=== PATIENT | male | born 1950 | race Two or more races ===

== ENCOUNTER 2016-12-03 00:25 | Inpatient (IN) | payer OTHER ==
--- NOTE | 2016-12-03 00:39 | CPEKG ---
Heart Rate: 108 RR Interval: 556 P-R Interval: 168 QRSD Interval: 88 QT Interval: 344 QTC Interval: 461 P [place]: 65 QRS [place]: 47 T Wave [place]: 68 EKG Severity - ABNORMAL ECG - EKG Impression: SINUS TACHYCARDIA EKG Impression: PROBABLE INFERIOR INFARCT, OLD EKG Impression: CONSIDER POSTERIOR WALL INVOLVEMENT EKG Impression: ST DEPRESSION, CONSIDER ISCHEMIA, ANT LEADS Electronically Signed By: Marietta Evans 05-Dec-2016 04:40:11
[2016-12-03] MEDS ORDERED: NITROGLYCERIN 0.4 MG BTL SL ONE ×4 (00:49→01:05)
[2016-12-03] MEDS: ASPIRIN 81 MG CHEWABLE TAB PO ONE ×2 (01:04→02:40)
[2016-12-03 01:07] LABS: % IMMATURE GRANULYOCYTES 0.3 % (0.0-1.1); ABSOLUTE IMMATURE GRANULOCYTES 0.02 10^3/uL (0.00-0.10); ADD DIFF? NO; ADD MORPH? NO; ADD SCAN? NO; ATYPICAL LYMPHOCYTE FLAG 10 (0-99); FRAGMENT RBC FLAG 0 (0-99); HEMATOCRIT 44.7 % (40.0-51.0); HEMOGLOBIN 15.5 g/dL (13.7-17.5); LEFT SHIFT FLG 0 (0-99); LIPEMIA HEMOLYSIS FLAG 90 (0-99); MEAN CELL HEMOGLOBIN 31.6 pg (27.9-34.1); MEAN CELL HEMOGLOBIN CONCENTR. 34.7 g/dL (32.4-36.7); MEAN PLATELET VOLUME 9.3 fL (8.7-11.7); PLATELET CLUMPS FLAG 0 (0-99); PLATELET COUNT 235 10^3/uL (150-400); RED BLOOD CELL COUNT 4.91 10^6/uL (4.40-6.38); RED CELL DISTRIBUTION WIDTH 11.9 % (11.5-15.2)
[2016-12-03 01:16] LABS: ANION GAP 11 mEq/L (8-16); CALCIUM 9.2 mg/dL (8.5-10.4); CARBON DIOXIDE 22 mEq/l (22-31); CHLORIDE 98 mEq/L (97-110); CREATININE 0.6 mg/dL (0.7-1.3); GLOMERULAR FILTRATION RATE > 60; GLUCOSE 336 mg/dL (70-100); POTASSIUM 4.1 mEq/L (3.5-5.2); SODIUM 131 mEq/L (134-144)
[2016-12-03] MEDS ORDERED: IOPAMIDOL (ISOVUE 370) 100 ML BTL IV ONE (01:30)
--- NOTE | 2016-12-03 01:31 | EDPHY ---
H & P Stated Complaint: chest and L arm pain Time Seen by Provider: 12/03/16 00:43 HPI/ROS: HPI The patient presents with chest pain which began at about 10:00 p.m. tonight when he was walking in the house. The pain is in his left anterior chest and radiates down his left arm. It is sharp in nature and has been waxing and waning in regards severity but has never completely resolved. He has no associated shortness of breath, nausea, vomiting, diaphoresis or dizziness. He has no prior history of similar. He can walk for about 15-20 minutes and then sometimes experiences dyspnea. He has not seen a doctor in several years. He does not smoke tobacco. He denies any family history of cardiac disease.. REVIEW OF SYSTEMS Constitutional: No fever, no chills. Eyes: No discharge. ENT: No sore throat. Cardiovascular: Chest pain is present Respiratory: No cough, no shortness of breath. Gastrointestinal: No abdominal pain, no vomiting. Genitourinary: No hematuria. Musculoskeletal: No back pain. Skin: No rashes. Neurological: No headache. PMHx: No diabetes or hypertension, though has not been seen by a doctor in several years Soc Hx: Lives with his family, nonsmoker PHYSICAL General Appearance: Alert, no distress Eyes: Pupils equal and round no pallor or injection ENT, Mouth: Mucous membranes moist Respiratory: There are no retractions, lungs are clear to auscultation Cardiovascular: Regular rate and rhythm Gastrointestinal: Abdomen is soft and non-tender, no masses, bowel sounds normal Neurological: A&O, moves all extremities Skin: Warm and dry, no rashes Musculoskeletal: Neck is supple non tender Extremities: symmetrical, full range of motion Psychiatric: Patient is oriented X 3, there is no agitation Source: Patient Exam Limitations: No limitations - Personal History Current Tetanus/Diphtheria Vaccine: No - Medical/Surgical History Hx Asthma: No Hx Chronic Respiratory Disease: No Hx Diabetes: No Hx Cardiac Disease: No Hx Renal Disease: No Hx Cirrhosis: No Hx Alcoholism: No Hx HIV/AIDS: No Hx Splenectomy or Spleen Trauma: No Other PMH: PMHx: denies. PSHx: denies - Social History Smoking Status: Never smoked Drug Use: None Constitutional: Initial Vital Signs Temperature (C) 37 C 12/03/16 00:27 Heart Rate 110 H 12/03/16 00:27 Respiratory Rate 16 12/03/16 00:27 Blood Pressure 213/111 H 12/03/16 00:27 O2 Sat (%) 98 12/03/16 00:27 O2 Delivery Mode Nasal Cannula O2 (L/minute) 2 Allergies/Adverse Reactions: No Known Allergies Allergy (Unverified 12/03/16 00:27) Home Medications: Medication Instructions Recorded NK [No Known Home Meds] 12/03/16 Medical Decision Making - Diagnostics EKG Interpretation: EKG: Complete interpretation has been separately recorded in the [facility] archive. Summary impression: ST segment depressions in V1 through V3 with slight ST segment elevation in 2, 3, AVF rate of 108. Imaging: Chest x-ray two views interpreted by me shows cardiomegaly, interpreted by me, radiology interpretation is pending. CT scan of chest and abdomen with IV contrast demonstrates no dissection, discussed with Dr. Ballard of Radiology. ED Course/Re-evaluation: Upon arrival, the patient was immediately brought to a room. He had taken aspirin prior to arrival, so no further aspirin was given. EKG was obtained, which demonstrated ST segment depressions in V1 through V3, however there was some question if this was rate related ischemia. The patient was given sublingual nitroglycerin which improved his blood pressure to the 140s over 90s. He continued to have mild pain and thus was given morphine. The patient required additional dose of morphine with slight improvement in his pain. Initial troponin returned at 1.14. CT scan of chest was performed which did not show any aortic dissection. The case was discussed with the casting machine operator helper interventionist, Dr. Remy. He came to the emergency room to see the patient and took him emergently to the catheterization lab. Differential Diagnosis: This is a 66-year-old male with no significant past medical history, however no recent medical care, who presents brought in by family for chest pain which began at approximately 10:00 p.m. last night which occurred while walking. He continues to have pain now. Differential diagnosis includes ACS, aortic dissection, pulmonary embolism, pneumothorax, pneumonia. Critical Care Time: CRITICAL CARE Critical care time spent by me, Dr Evans, exclusively with this patient was 60 minutes, exclusive of PA time and exclusive of procedures. The organ system at risk was cardiac and I gave IV fluids, morphine IV, nitroglycerin sublingually, consulted with Cardiology and transfer the patient emergently to the cardiac catheterization lab to prevent worsening of the patients condition. - Data Points Laboratory Results: Laboratory Results 12/03/16 00:45 12/03/16 00:45 12/03/16 12/03/16 12/03/16 00:45 00:45 00:45 WBC 7.86 10^3/uL 10^3/uL (3.80-9.50) RBC 4.91 10^6/uL 10^6/uL (4.40-6.38) Hgb 15.5 g/dL g/dL (13.7-17.5) Hct 44.7 % % (40.0-51.0) MCV 91.0 fL fL (81.5-99.8) MCH 31.6 pg pg (27.9-34.1) MCHC 34.7 g/dL g/dL (32.4-36.7) RDW 11.9 % % (11.5-15.2) Plt Count 235 10^3/uL 10^3/uL (150-400) MPV 9.3 fL fL (8.7-11.7) Neut % (Auto) 75.0 % H % (39.3-74.2) Lymph % (Auto) 17.9 % % (15.0-45.0) [place] % (Auto) 5.2 % % (4.5-13.0) Eos % (Auto) 1.0 % % (0.6-7.6) Baso % (Auto) 0.6 % % (0.3-1.7) Nucleat RBC Rel Count 0.0 % % (0.0-0.2) Absolute Neuts (auto) 5.89 10^3/uL 10^3/uL (1.70-6.50) Absolute Lymphs (auto) 1.41 10^3/uL 10^3/uL (1.00-3.00) Absolute Monos (auto) 0.41 10^3/uL 10^3/uL (0.30-0.80) Absolute Eos (auto) 0.08 10^3/uL 10^3/uL (0.03-0.40) Absolute Basos (auto) 0.05 10^3/uL 10^3/uL (0.02-0.10) Absolute Nucleated RBC 0.00 10^3/uL 10^3/uL (0-0.01) Immature Gran % 0.3 % % (0.0-1.1) Immature Gran # 0.02 10^3/uL 10^3/uL (0.00-0.10) PT 13.1 SEC SEC (12.0-15.0) INR 1.00 (0.83-1.16) APTT 26.0 SEC SEC (23.0-38.0) Sodium 131 mEq/L L mEq/L (134-144) Potassium 4.1 mEq/L mEq/L (3.5-5.2) Chloride 98 mEq/L mEq/L (97-110) Carbon Dioxide 22 mEq/l mEq/l (22-31) Anion Gap 11 mEq/L mEq/L (8-16) BUN 8 mg/dL mg/dL (7-23) Creatinine 0.6 mg/dL L mg/dL (0.7-1.3) Estimated GFR > 60 Glucose 336 mg/dL H mg/dL (70-100) Calcium 9.2 mg/dL mg/dL (8.5-10.4) Troponin I 1.430 ng/mL H ng/mL (0-0.034) NT-Pro-B Natriuret Pep 66 pg/mL pg/mL (0-125) Medications Given: Discontinued Medications Aspirin (Aspirin) 324 mg PO EDNOW ONE Stop: 12/03/16 01:03 Last Admin: 12/03/16 02:40 Dose: 324 mg Sodium Chloride (Ns) 1,000 mls @ 0 mls/hr IV ONCE ONE PRN Reason: Wide Open Stop: 12/03/16 01:38 Last Admin: 12/03/16 01:00 Dose: 1,000 mls Morphine Sulfate (Morphine) 4 mg IVP EDNOW ONE Stop: 12/03/16 01:11 Last Admin: 12/03/16 01:24 Dose: 4 mg Morphine Sulfate (Morphine) 4 mg IVP EDNOW ONE Stop: 12/03/16 01:36 Last Admin: 12/03/16 01:35 Dose: 4 mg Nitroglycerin (Nitrostat) 0.4 mg SL EDNOW ONE Stop: 12/03/16 00:53 Last Admin: 12/03/16 00:50 Dose: 0.4 mg Nitroglycerin (Nitrostat) 0.4 mg SL EDNOW ONE Stop: 12/03/16 01:00 Last Admin: 12/03/16 00:55 Dose: 0.4 mg Nitroglycerin (Nitrostat) 0.4 mg SL EDNOW ONE Stop: 12/03/16 01:06 Last Admin: 12/03/16 01:05 Dose: 0.4 mg Departure - Departure Disposition: [facility] Inpatient Acute Clinical Impression: Acute coronary syndrome Chest pain Qualifiers: Chest pain type: chest pain due to myocardial ischemia Ischemic chest pain type : unspecified angina pectoris type Qualified Code(s): I20.9 - Angina pectoris, unspecified HTN (hypertension) Qualifiers: Hypertension type: essential hypertension Qualified Code(s): I10 - Essential ( primary) hypertension Condition: Fair
[2016-12-03] MEDS ORDERED: NS 1,000 ML IV ONE (01:37)
--- NOTE | 2016-12-03 01:52 | CPEKG ---
Heart Rate: 94 RR Interval: 638 P-R Interval: 176 QRSD Interval: 86 QT Interval: 380 QTC Interval: 476 P [place]: 50 QRS [place]: 0 T Wave [place]: 52 EKG Severity - ABNORMAL ECG - EKG Impression: SINUS RHYTHM EKG Impression: INFERIOR INFARCT, AGE INDETERMINATE EKG Impression: PROBABLE POSTERIOR INFARCT EKG Impression: BORDERLINE PROLONGED QT INTERVAL Electronically Signed By: Marietta Evans 03-Dec-2016 07:07:17
[2016-12-03] MEDS ORDERED: fentaNYL 100 MCG/2 ML INJ ONE ×2 (02:16→03:19)
[2016-12-03] MEDS ORDERED: MIDAZOLAM 2 MG/2 ML VIAL ONE ×3 (02:16→03:19)
[2016-12-03] MEDS ORDERED: LIDOCAINE 1% 30 ML SDV ONE (02:16)
[2016-12-03] MEDS ORDERED: NITROGLYCERIN 1,500 MCG/15 ML VIAL MISC ONE ×2 (02:17→02:58)
[2016-12-03] MEDS ORDERED: BIVALIRUDIN 250 MG/5 ML VIAL IV ONE (02:17)
[2016-12-03] MEDS ORDERED: VERAPAMIL 5 MG/2 ML VIAL ONE ×2 (02:17→02:56)
[2016-12-03] MEDS ORDERED: HEPARIN 10,000 UNIT/10 ML MDV ONE (02:17)
[2016-12-03] MEDS ORDERED: IOPAMIDOL (ISOVUE-370) 150 ML BTL IV ONE ×3 (02:17→04:00)
[2016-12-03] MEDS ORDERED: PRASUGREL HCL 10 MG TAB ONE (03:06)
[2016-12-03] MEDS ORDERED: PROTOCOL MAGNESIUM 1 DOSE IV PRN (04:37)
[2016-12-03] MEDS ORDERED: LORazepam 2 MG/ML INJ IVP PRN (04:37)
[2016-12-03] MEDS ORDERED: PROTOCOL POTASSIUM 1 DOSE MISC PRN ×2 (04:37)
[2016-12-03] MEDS ORDERED: PRASUGREL HCL 10 MG TAB PO ONE (04:37)
[2016-12-03] MEDS ORDERED: TEMAZEPAM 15 MG CAP PO PRN (04:37)
[2016-12-03] MEDS ORDERED: NITROGLYCERIN 0.4 MG BTL SL PRN (04:37)
[2016-12-03] MEDS ORDERED: OXYCODONE/APAP 5/325 TAB PO PRN (04:37)
[2016-12-03] MEDS ORDERED: ONDANSETRON 4 MG/2 ML VIAL IVP PRN (04:37)
[2016-12-03] MEDS ORDERED: ATROPINE SULFATE 1 MG/10 ML SYR IVP PRN (04:37)
[2016-12-03] MEDS ORDERED: HYDROCODONE/APAP 5/325 TAB PO PRN (04:37)
--- NOTE | 2016-12-03 04:52 | PDDXCAT ---
Diagnostic Cath Note - . Date: 12/03/16 Mold Machine Operator: Jonel Indication: other (STEMI. Delay in door to balloon time due to unusual presentation with waxing and waning symptoms. Cardiology and catheterization laboratory were not contacted [place] patient had been in the emergency department for approximately 90 minutes.) - Procedure Access: right wrist Procedure: left heart catheterization, coronary angiography, left ventriculogram , other (PCI of circumflex and LAD with intravascular ultrasound imaging) - Materials Left Heart Cath size: 6F Left Heart Cath materials: JL3.5, JR4.0, Eliazar's R, other (AL1 for right coronary) - Findings-Left Heart Catheterization LM: Short with distal calcified 50% stenosis affecting LAD LAD: Ostial and very proximal 90-95% stenosis with mid calcified 80% stenosis and at least 90% or greater ostial stenosis of large bifurcating diagonal branch. The mid LAD stenosis in diagonal stenosis are a true bifurcation lesion. LCX: 100% acute total occlusion affecting a large bifurcating marginal/ posterolateral accounting for acute [place]. 70% av groove disease over a long segment confirmed by ultrasound imaging. Total occlusion of distal AV groove vessel both pre and post intervention. This is a small vessel. Subtotal occlusion of small more proximal marginal. RCA: 95% proximal disease with total distal occlusion. Complex collateralization both left to right and right to right mainly filling a large PDA EDP: 26 mm of mercury LVEF: Approximately 45% Wall motion: Posterior and inferior hypokinesis. Evidence for at least moderate or greater mitral regurgitation. Unclear if this is due to ischemic valvular disease or catheter-induced. Complications: None apparent Estimated blood loss: <50ml Closure method: TR Band Assessment: 1. Acute myocardial infarction due to total thrombotic occlusion of a fairly large distal circumflex. 2. Critical ostial and proximal LAD disease likely involving distal left main (left main very short vessel). 3. 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 4. Complex severe mid LAD disease affecting LAD and diagonal branch. 5. Mitral regurgitation at least moderate. Quite possibly due to ischemic mitral regurgitation. 6. Reduced left ventricular ejection fraction with multiple segmental wall motion abnormalities. 7. Successful acute myocardial infarction percutaneous intervention with stenting and high-pressure post dilation of the distal circumflex with excellent final result. 8. Successful stenting of distal left main into ostial and proximal LAD due to critical disease and hemodynamic instability Plan: 1. Dual anti-platelet therapy with aspirin and Effient 2. Follow mitral valve with echocardiography 3. Beta-evy as tolerated 4. We will add BUNNY inhibitor as tolerated once patient has cleared contrast 5. High dose statin therapy 6. Patient will likely need to return for LAD and diagonal complex bifurcation intervention within the next few weeks 7. Assessment of hyperglycemia. Possible treatment of undue diagnosed diabetes. Number a hospitalist consultation Intervention: Initial intervention was performed on the culprit acute lesion in the circumflex. A radial left backup 4.0 6 [place] guide catheter was utilized. Heparin had been administered and further heparin was given throughout the case based on ACT. Patient received aspirin and Effient. Prowater J guidewire was placed distally which led to reperfusion. 2.0 x 12 mm balloon was utilized for pre dilation. Intravascular ultrasound imaging was then performed showing severe diffuse disease throughout the AV groove circumflex. A 2.5 x 38 mm synergy stent was then carefully positioned and deployed to 18 atmospheres. Intracoronary nitroglycerin and verapamil were administered. Ultrasound imaging was performed and a 3.25 x 15 mm non compliant emerge balloon was utilized for multiple post dilations up to 20 atmospheres. This led to an excellent result although there remained no flow in the distal AV groove circumflex which is a small vessel which exited the stent and was in stent assisted. A 2nd Prowater J-wire was placed but could not negotiate across the stent struts into this small occluded vessel. The 2nd Prowater J-wire was then steered into the LAD and intravascular ultrasound imaging was performed from the mid vessel into the left main. This demonstrated the calcified severe mid LAD stenosis and a critical proximal/ ostial stenosis. Ultrasound catheter led to obstruction of flow in the ostial vessel associated with further hemodynamic instability. This improved with removal of the catheter. Measurements were made and a 4.0 mm x 12 mm synergy stent was chosen and carefully positioned in the ostial vessel. Wire remained in the circumflex. It became apparent that the stent would need to hang back slightly into the left main in order to adequately cover the LAD stenosis. This stent was then deployed to 16 atmospheres leading to significant hypotension and hemodynamic instability. A 2nd inflation was performed again this time to 18 atmospheres. Balloon was removed and ultrasound imaging showed an excellent result with mild encroachment on the ostial circumflex. An attempt to perform ultrasound into the circumflex was unsuccessful and aggressive attempts were not made for fear of distorting the LAD stent. After nitroglycerin and verapamil were administered final orthogonal angiography was performed. Jamie right catheter followed by a AL1 catheter were utilized for further negative right coronary angiography in order to better understand the anatomy and collateral filling. Patient Problems: Problems Problem Status Onset Acute coronary syndrome Acute Chest pain Acute HTN (hypertension) Acute
[2016-12-03 04:59] LABS: PROTIME(PATIENT) 13.1 SEC (12.0-15.0)
[2016-12-03] MEDS ORDERED: 1/2 NS 1,000 ML IV SCH (05:00)
--- NOTE | 2016-12-03 05:05 | CPEKG ---
Heart Rate: 86 RR Interval: 698 P-R Interval: 224 QRSD Interval: 76 QT Interval: 388 QTC Interval: 464 P [place]: 47 QRS [place]: -58 T Wave [place]: 44 EKG Severity - ABNORMAL ECG - EKG Impression: SINUS RHYTHM EKG Impression: FIRST DEGREE AV BLOCK EKG Impression: PROBABLE INFERIOR INFARCT, AGE INDETERMINATE EKG Impression: PROBABLE POSTERIOR INFARCT Electronically Signed By: Marietta Evans 03-Dec-2016 07:07:09
[2016-12-03 06:10] LABS: % IMMATURE GRANULYOCYTES 0.1 % (0.0-1.1); ABSOLUTE IMMATURE GRANULOCYTES 0.01 10^3/uL (0.00-0.10); ADD DIFF? NO; ADD MORPH? NO; ADD SCAN? NO; ATYPICAL LYMPHOCYTE FLAG 0 (0-99); FRAGMENT RBC FLAG 0 (0-99); HEMATOCRIT 40.5 % (40.0-51.0); LEFT SHIFT FLG 0 (0-99); LIPEMIA HEMOLYSIS FLAG 90 (0-99); MEAN CELL HEMOGLOBIN 31.3 pg (27.9-34.1); MEAN CELL HEMOGLOBIN CONCENTR. 34.6 g/dL (32.4-36.7); MEAN CELL VOLUME 90.6 fL (81.5-99.8); MEAN PLATELET VOLUME 9.3 fL (8.7-11.7); PLATELET CLUMPS FLAG 10 (0-99); PLATELET COUNT 215 10^3/uL (150-400); RED BLOOD CELL COUNT 4.47 10^6/uL (4.40-6.38)
[2016-12-03 06:24] LABS: CHOLESTEROL 146 mg/dL (140-220); CHOLESTEROL/HDL RATIO 3.32 RATIO (1.00-4.97); HIGH DENSITY LIPOPROTEIN 44 mg/dL (40-65); LDL/HDL RATIO 2.09 RATIO (1.00-3.64); LOW DENSITY LIPOPROTEIN 92 mg/dL (80-100); NON-HIGH DENSITY LIPOPROTEIN 102 mg/dL (90-129); TRIGLYCERIDE 50 mg/dL (40-150); VERY LOW DENSITY LIPOPROTEINS 10 mg/dL (8-25)
[2016-12-03 06:38] LABS: ALBUMIN 3.3 g/dL (3.5-5.0); ANION GAP 8 mEq/L (8-16); ASPARTATE AMINOTRANSFERASE 342 IU/L (17-59); BILIRUBIN,TOTAL 0.9 mg/dL (0.1-1.4); CALCIUM 7.9 mg/dL (8.5-10.4); CARBON DIOXIDE 22 mEq/l (22-31); CHLORIDE 103 mEq/L (97-110); CREATININE 0.7 mg/dL (0.7-1.3); GLOMERULAR FILTRATION RATE > 60; GLUCOSE 228 mg/dL (70-100); LACTATE DEHYDROGENASE 1497 IU/L (313-618); POTASSIUM 5.1 mEq/L (3.5-5.2); SODIUM 133 mEq/L (134-144)
[2016-12-03 06:46] LABS: CK-MB INTERPRETATION POSITIVE (NEGATIVE)
--- NOTE | 2016-12-03 08:47 | CPEKG ---
Heart Rate: 79 RR Interval: 759 P-R Interval: 200 QRSD Interval: 82 QT Interval: 408 QTC Interval: 468 P [place]: 62 QRS [place]: -30 T Wave [place]: -25 EKG Severity - ABNORMAL ECG - EKG Impression: SINUS RHYTHM EKG Impression: INFERIOR INFARCT, AGE INDETERMINATE EKG Impression: CONSIDER POSTERIOR WALL INVOLVEMENT Electronically Signed By: Marietta Evans 05-Dec-2016 04:35:49
[2016-12-03] MEDS: ATORVASTATIN CALCIUM 40 MG TAB PO SCH (09:11)
[2016-12-03] MEDS: ASPIRIN EC 325 MG TAB PO SCH (09:11)
[2016-12-03] MEDS: CARVEDILOL 3.125 MG TAB PO SCH ×2 (09:11→17:49)
[2016-12-03 09:38] LABS: HEMOGLOBIN A1C 10.1 % (4.0-6.0)
[2016-12-03 16:48] LABS: POTASSIUM 3.7 mEq/L (3.5-5.2)
[2016-12-03] MEDS ORDERED: POTASSIUM CL 10 MEQ TAB PO ONE ×2 (16:52→17:38)
[2016-12-03 17:32] LABS: POTASSIUM 3.8 mEq/L (3.5-5.2)
[2016-12-03 18:14] LABS: CK-MB INTERPRETATION POSITIVE (NEGATIVE)
[2016-12-03] MEDS ORDERED: D50W 25 GM/50 ML SYR IVP PRN (20:14)
--- NOTE | 2016-12-03 20:49 | PDGENHP ---
History and Physical - Chief Complaint acute chest pain - History of Present Illness PCP: None Primary service: Dr. Remy, cardiology Reason for consultation: Medical comanagement, diabetes mellitus HPI: 66-year-old male presents with acute chest pain characterized as sharp, severe, located his right chest with associated pain is located in his bilateral shoulders, onset of symptoms 10:00 p.m. on 12/02/2016, duration several hours and not alleviated with sublingual nitroglycerin or morphine. The patient was identified as having an ST-elevation myocardial infarction and he was taken to the public works laborer where stenting occurred. Patient's chest pain was alleviated with this procedure. Prior to his onset of symptoms, the patient reports that he has not had any recent reduction in exercise tolerance although he reports that he is very minimally physically active. He otherwise denies any fatigue or low energy and his only present symptom is poor appetite post catheterization. History Information - Allergies/Home Medication List Allergies/Adverse Reactions: No Known Allergies Allergy (Unverified 12/03/16 00:27) Home Medications: NK [No Known Home Meds] 12/03/16 [Last Taken Unknown] I have personally reviewed and updated: family history, medical history, social history, surgical history - Past Medical History diabetes type 2 ( Not placed on medications in the past), hypertension ( not placed on medications in the past) - Surgical History Additional surgical history: cardiac catheterization today with stents placed - Family History Additional family history: no family history of coronary artery disease or hypothyroidism - Social History Smoking Status: Never smoked Alcohol Use: None Drug Use: None Additional social history: minimally physically active, originally from [place], has lived with his in the [place] area since the Review of Systems ROS: 10pt was reviewed & negative except for what was stated in HPI & below Cardiac: Reports: chest pain Physical Exam Temp Pulse Resp BP Pulse Ox 36.8 C 73 20 134/75 H 96 12/03/16 19:00 12/03/16 19:00 12/03/16 19:00 12/03/16 19:00 12/03/16 19:00 O2 (L/minute) 2 Constitutional: no apparent distress, appears nourished, not in pain Eyes: PERRL, anicteric sclera, EOMI Ears, Nose, Mouth, Throat: moist mucous membranes, hearing normal, ears appear normal, no oral mucosal ulcers Cardiovascular: regular rate and rhythym, no murmur, rub, or gallop, No edema Respiratory: no respiratory distress, no rales or rhonchi, clear to auscultation Gastrointestinal: normoactive bowel sounds, soft, non-tender abdomen, no palpable masses Genitourinary: no bladder fullness, no bladder tenderness Skin: other ( erythema or ecchymoses around the cardiac catheterization site on his right wrist) Neurologic: AAOx3, sensation intact bilaterally, No weakness Psychiatric: interacting appropriately, not anxious, not encephalopathic, thought process linear Lab Data & Imaging Review 12/03/16 05:45 12/03/16 17:15 WBC 7.17 10^3/uL (3.80-9.50) 12/03/16 05:45 RBC 4.47 10^6/uL (4.40-6.38) 12/03/16 05:45 Hgb 14.0 g/dL (13.7-17.5) 12/03/16 05:45 Hct 40.5 % (40.0-51.0) 12/03/16 05:45 MCV 90.6 fL (81.5-99.8) 12/03/16 05:45 MCH 31.3 pg (27.9-34.1) 12/03/16 05:45 MCHC 34.6 g/dL (32.4-36.7) 12/03/16 05:45 RDW 12.0 % (11.5-15.2) 12/03/16 05:45 Plt Count 215 10^3/uL (150-400) 12/03/16 05:45 MPV 9.3 fL (8.7-11.7) 12/03/16 05:45 Neut % (Auto) 67.1 % (39.3-74.2) 12/03/16 05:45 Lymph % (Auto) 26.1 % (15.0-45.0) 12/03/16 05:45 [place] % (Auto) 4.7 % (4.5-13.0) 12/03/16 05:45 Eos % (Auto) 1.4 % (0.6-7.6) 12/03/16 05:45 Baso % (Auto) 0.6 % (0.3-1.7) 12/03/16 05:45 Nucleat RBC Rel Count 0.0 % (0.0-0.2) 12/03/16 05:45 Absolute Neuts (auto) 4.81 10^3/uL (1.70-6.50) 12/03/16 05:45 Absolute Lymphs (auto) 1.87 10^3/uL (1.00-3.00) 12/03/16 05:45 Absolute Monos (auto) 0.34 10^3/uL (0.30-0.80) 12/03/16 05:45 Absolute Eos (auto) 0.10 10^3/uL (0.03-0.40) 12/03/16 05:45 Absolute Basos (auto) 0.04 10^3/uL (0.02-0.10) 12/03/16 05:45 Absolute Nucleated RBC 0.00 10^3/uL (0-0.01) 12/03/16 05:45 Immature Gran % 0.1 % (0.0-1.1) 12/03/16 05:45 Immature Gran # 0.01 10^3/uL (0.00-0.10) 12/03/16 05:45 PT 13.1 SEC (12.0-15.0) 12/03/16 00:45 INR 1.00 (0.83-1.16) 12/03/16 00:45 APTT 26.0 SEC (23.0-38.0) 12/03/16 00:45 Sodium 136 mEq/L (134-144) 12/03/16 17:15 Potassium 3.8 mEq/L (3.5-5.2) 12/03/16 17:15 Chloride 103 mEq/L (97-110) 12/03/16 05:25 Carbon Dioxide 22 mEq/l (22-31) 12/03/16 05:25 Anion Gap 8 mEq/L (8-16) 12/03/16 05:25 BUN 7 mg/dL (7-23) 12/03/16 05:25 Creatinine 0.7 mg/dL (0.7-1.3) 12/03/16 05:25 Estimated GFR > 60 12/03/16 05:25 Glucose 228 mg/dL (70-100) H 12/03/16 05:25 Hemoglobin A1c 10.1 % (4.0-6.0) H 12/03/16 05:45 Estim Average Glucose 243 mg/dL (68-126) H 12/03/16 05:45 Calcium 7.9 mg/dL (8.5-10.4) L 12/03/16 05:25 Phosphorus 2.8 mg/dL (2.5-4.5) 12/03/16 05:25 Magnesium 2.0 mg/dL (1.6-2.3) 12/03/16 05:25 Total Bilirubin 0.9 mg/dL (0.1-1.4) 12/03/16 05:25 AST 342 IU/L (17-59) H 12/03/16 05:25 Lactate Dehydrogenase 1497 IU/L (313-618) H 12/03/16 05:25 Creatine Kinase 2972 IU/L (0-224) H 12/03/16 13:00 CK-MB (CK-2) Fraction 242.00 ng/mL (0-3.19) H 12/03/16 13:00 CK-MB (CK-2) % 8.1 % (0.0-4.0) H 12/03/16 13:00 Creatine Kinase Interp POSITIVE (NEGATIVE) H 12/03/16 13:00 Troponin I 109.000 ng/mL (0-0.034) H 12/03/16 05:25 NT-Pro-B Natriuret Pep 145 pg/mL (0-125) H 12/03/16 05:45 Albumin 3.3 g/dL (3.5-5.0) L 12/03/16 05:25 Triglycerides 50 mg/dL (40-150) 12/03/16 05:45 Cholesterol 146 mg/dL (140-220) 12/03/16 05:45 Cholesterol Risk Factr 0.5 (0.2-1.0) 12/03/16 05:45 LDL Cholesterol, Calc 92 mg/dL (80-100) 12/03/16 05:45 LDL Risk Factor 0.8 (0.2-1.0) 12/03/16 05:45 VLDL Cholesterol 10 mg/dL (8-25) 12/03/16 05:45 Non-HDL Cholesterol 102 mg/dL (90-129) 12/03/16 05:45 HDL Cholesterol 44 mg/dL (40-65) 12/03/16 05:45 LDL/HDL Ratio 2.09 RATIO (1.00-3.64) 12/03/16 05:45 Cholesterol/HDL Ratio 3.32 RATIO (1.00-4.97) 12/03/16 05:45 TSH 9.430 uIU/mL (0.465-4.680) H 12/03/16 05:45 Specimen Hemolysis 155 12/03/16 17:15 Visualized and Interpreted EKG results: Yes EKG Interpretation: Positive for: other ( initial ST-elevation in the inferior leads with reciprocal changes in V2 through V4, subsequent EKG demonstrates Q- wave in lead 3 and aVF with T-wave inversions in leads V5 through V6 as well as the inferior leads) Assessment & Plan Assessment: 66-year-old male presents with an ST-elevation myocardial infarction Plan: 1. ST-elevation myocardial infarction. Discussed with Dr. Ishaan Remy, he expresses that the patient has multivessel disease with what appears to be chronic occlusion in the RCA, culprit lesion in the circumflex, possibly LAD and left main with stents placed, ejection fraction 45%. -CT angiogram demonstrating no evidence of pulmonary embolism -anti-platelet agents are aspirin and Effient -goal LDL is less than 70, currently 92, on statin -initiated on beta-evy for reduced ejection fraction -recommend initiation of low-dose BUNNY-inhibitor if systolic blood pressure tolerates -monitor on telemetry for any ventricular arrhythmias given his large event with peak troponin of 109 2. Diabetes mellitus type 2 with hyperglycemia. Patient has been diagnosed with diabetes mellitus in the past but has not been on any agents, his worsening hyperglycemia may be a stress response in the setting of ST-elevation myocardial infarction but his hemoglobin A1c is 10.1% he warrants initiation of anti glycemic agents at this time. -initiate metformin 500 mg twice daily given his present GI symptoms, rapidly up titrate to 1000 mg twice daily if he tolerates this initial dose -initiate on insulin sliding scale so we can get a better understanding of his blood sugar levels and also insulin requirements in case he does require concomitant use of Lantus moving forward 3. Hypertension. Chronic, with acute exacerbation in the setting of myocardial infarction, has been initiated on beta-evy therapy and would recommend introduction of low-dose BUNNY-inhibitor if systolic blood pressure tolerates tomorrow 4. Hyponatremia. Acute, most likely secondary to renal hypoperfusion in the setting of acute [place], improving with IV fluids -adjusted IV fluids from half-normal saline to normal saline 5. Subclinical hypothyroidism. TSH level 9.4, not expressing any hypothyroidism symptoms, would not recommend initiating Synthroid at this time -would recommend follow up with a primary care provider after this hospitalization to monitor for the emergence of symptoms and an indication to initiate Synthroid Hospital Medicine service will continue to consult in this patient's daily care , Dr. Remy will remain as the primary.
[2016-12-03] MEDS ORDERED: NS 1,000 ML IV SCH (21:00)
[2016-12-03] MEDS ORDERED: INSULIN GLARGINE 100 UNITS/ML SYRINGE SC SCH (21:00)
[2016-12-03] MEDS: metFORMIN HCL 500 MG TAB PO SCH ×2 (21:14→22:07)
[2016-12-03 21:24] LABS: CK-MB INTERPRETATION POSITIVE (NEGATIVE)
[2016-12-03 21:33] LABS: GLUCOSE 199 mg/dL (70-100); SPECIMEN HEMOLYSIS 165
[2016-12-03] MEDS: INSULIN REGULAR HUMAN 100 UNIT/ML SC SCH (21:50)
[2016-12-04 06:18] LABS: ANION GAP 5 mEq/L (8-16); CALCIUM 8.4 mg/dL (8.5-10.4); CARBON DIOXIDE 24 mEq/l (22-31); CHLORIDE 105 mEq/L (97-110); CREATININE 0.7 mg/dL (0.7-1.3); GLOMERULAR FILTRATION RATE > 60; GLUCOSE 157 mg/dL (70-100); MAGNESIUM 1.8 mg/dL (1.6-2.3); POTASSIUM 3.9 mEq/L (3.5-5.2); SODIUM 134 mEq/L (134-144)
[2016-12-04 06:30] LABS: CK-MB INTERPRETATION POSITIVE (NEGATIVE)
[2016-12-04 07:25] VITALS: RESP 14; TEMP 98.6
[2016-12-04] MEDS: INSULIN REGULAR HUMAN 100 UNIT/ML SC SCH ×2 (07:54→11:46)
[2016-12-04] MEDS: ATORVASTATIN CALCIUM 40 MG TAB PO SCH (07:54)
[2016-12-04] MEDS: ASPIRIN EC 325 MG TAB PO SCH (07:55)
[2016-12-04] MEDS: CARVEDILOL 3.125 MG TAB PO SCH (07:55)
[2016-12-04] MEDS: metFORMIN HCL 500 MG TAB PO SCH (07:55)
[2016-12-04] MEDS ORDERED: PRASUGREL HCL 10 MG TAB PO SCH (09:00)
[2016-12-04 10:21] VITALS: BP 141/74; PULSE 74; O2SAT 98
--- NOTE | 2016-12-04 12:31 | GDS ---
FINAL DIAGNOSES: 1. Acute ST-elevation myocardial infarction. 2. Coronary artery disease. 3. Diabetes mellitus type 2. 4. Possible hypothyroid. 5. Hyponatremia. 6. Hypertension. HOSPITAL COURSE: This is a 66-year-old man who presented with chest pain. He is found to have ST-e levation [place]. He was taken emergently to the laborer tin can. Dr. Remy found a total thrombotic occlusi on of his large distal circumflex, critical ostial and proximal LAD disease involving the distal lef t main, chronic total occlusion of the right coronary artery with collaterals, possible severe mid L AD disease, at least moderate MR, possibly due to ischemia, EF of 45%. He had a successful stenting of his distal circumflex, with an excellent final result. He has not had any chest pain post brandan terization. He is stable for discharge. I have discussed this with Ford Davila. He will be placed o n Effient as well as aspirin. He is also on Coreg and statin. He will not be placed on an BUNNY inhi bitor due to just having received contrast, though this will be instituted soon as an outpatient. In terms of his diabetes, he has been placed on metformin. He has been instructed to start this reina orrow. He will need to establish with a primary care physician for ongoing management and up-titrat ion of his metformin. He will likely need to do a staged procedure in the next few weeks to address the LAD and diagonal c omplex bifurcation. BILLING: I spent more than 30 minutes on the day of discharge coordinating care. /[id number]/MODL
--- NOTE | 2016-12-04 15:38 | SOAPPROG ---
SOAP Progress Note Assessment/Plan: Assessment: Cardiology ([place]) 1. Acute [place] with culprit lesion in the distal Cx treated w/ DESx1. He has been placed on DAPT with aspirin 325 mg/d and Effient 10 mg/d. Right radial puncture site is uncomplicated. Troponin peaked at 109--> now 46. 2. Severe 3 vessel CAD. Aside from culprit lesion above there is [employer]LECT[employer] of RCA with both R-R and L-R collateralization filling via large PDA, 50% left main stenosis, severe ostial and proximal LAD stenosis, severe LAD/diag bifurcation lesion. 3. Ischemic cardiomyopathy / acute systolic CHF. LVEF 45% with multiple segmental WMAs. He appears euvolemic on exam today. Carvedilol 3.125 mg bid started. No ACEi on board yet. 4. Left carotid artery bruit on exam, new exam finding. The patient has no prior history of presyncope, syncope or CVA. 5. Diabetes mellitus, new diagnosis. HbA1c 10.1%. 6. Hypothyroid state 2/2 elevated TSH of 9.43, new diagnosis. 7. HTN Plan: 1. Continue aspirin 325 mg/d and Effient 10 mg/d. 2. Recommend starting metformin tomorrow due to having contrast dye less than 48 hours ago. 3. Continue atorvastatin 40 mg/d. 4. Continue carvedilol 3.125 mg bid. 5. Arrange for office follow in 7-10 days. At that time we will discuss timing of next elective PCI of LAD and bifurcation stenting. It is unknown to me whether there are plans for RCA stenting in the future. 6. Initiate BUNNY/ARB as outpatient. 7. Carotid US to be ordered at time of outpatient visit. 12/04/16 16:16 12/04/16 16:24 Subjective: The patient has no complaints and has felt well today. His and son are present in the room today. The patient denies any chest, shoulder, or arm discomfort that were the anginal symptoms that brought him into the hospital. His right radial puncture site is uncomplicated. The family's preference is that the patient go home where he would be more comfortable and eat his traditional diet. They understand that he is a candidate for future coronary interventions on his LAD, diagonal, and potentially right coronary arteries. He has been give Effient samples. The remainder of his medication will be Rx'd by Dr. Tadeo. I discussed the patient by phone with Dr. Tadeo who will assess the patient and discharge today if he feels appropriate; otherwise he can be transferred to PCU. Objective: Vital Signs Temp Pulse Resp BP Pulse Ox 37.0 C 74 14 141/74 H 98 12/04/16 07:22 12/04/16 10:00 12/04/16 10:00 12/04/16 10:00 12/04/16 10:00 Laboratory Results 12/03/16 05:45 12/04/16 05:27 12/03/16 12/04/16 12/05/16 05:59 05:59 05:59 Intake Total 500 700 Output Total 1500 650 Balance -1000 50 PT 13.1 SEC (12.0-15.0) 12/03/16 00:45 INR 1.00 (0.83-1.16) 12/03/16 00:45 - Time Spent With Patient Time Spent With Patient: 40 minutes spend in coordinating care, physical exam and documentation. - Pending Discharge Pending Discharge Within 24 Hours: Yes Pending Discharge Date: 12/05/16 Pending Discharge Time: 11:00 Physical Exam - Physical Exam General Appearance: WD/WN, alert, no apparent distress Neck: carotid bruit (left side) Respiratory: chest non-tender, lungs clear, normal breath sounds Cardiac/Chest: normal peripheral pulses, regular rate, rhythm, No edema, No JVD , No systolic murmur Peripheral Pulses: 2+: dorsalis-pedis (R), dorsalis-pedis (L) Abdomen: normal bowel sounds, non-tender, soft Extremities: normal range of motion, non-tender, normal inspection, normal capillary refill Neuro/Psych: no motor/sensory deficits, alert, normal mood/affect, oriented x 3 ICD10 Worksheet Patient Problems: Problems Problem Status Onset Acute coronary syndrome Acute Chest pain Acute Chronic Disease Mgmt/Transitional Care Acute HTN (hypertension) Acute
[2016-12-05 14:19] LABS: APOLIPOPROTEIN B 84 mg/dL; BETA VLD CHOLESTEROL Not Detected mg/dL (<15); BETA VLD TRIGLYCERIDE Not Detected mg/dL (<15); CHOLESTEROL, TOTAL 151 mg/dL; CHYLOMICRONS CHOLESTEROL Not Detected; CHYLOMICRONS TRIGLYCERIDE Not Detected; HDL CHOLESTEROL 40 mg/dL (>=40); LDL CHOLESTEROL 98 mg/dL; LDL TRIGLYCERIDES 24 mg/dL (<=50); Lp(a) CHOLESTEROL 6 mg/dL (<3); LpX Not detected; TRIGLYCERIDES 53 mg/dL; VLDL CHOLESTEROL 0 mg/dL (<30); VLDL TRIGLYCERIDE 0 mg/dL (<120)
== END 2016-12-04 14:00 | disposition home or self-care (01) | DRG 228 ==
LOC: F2N 04:28
PROVIDERS: ADMIT Internal Medicine Interventional Cardiology; ATTEND Student in an Organized Health Care Education/Training Program
DX: I21.3 ST elevation (STEMI) myocardial infarction of unspecified site (principal); I25.10 Atherosclerotic heart disease of native coronary artery without angina pectoris; I50.21 Acute systolic (congestive) heart failure; I11.0 Hypertensive heart disease with heart failure; I25.5 Ischemic cardiomyopathy; E87.1 Hypo-osmolality and hyponatremia; E11.9 Type 2 diabetes mellitus without complications; E03.9 Hypothyroidism, unspecified
CPT/HCPCS: 82172-90; 82947-QW; 83695-90; 96374; C1725; C1753; C1769; C1874; C1887; C9606; J0583; J1644; J1815; J2250; J3010; Q9967

== ENCOUNTER → 2017-01-02 | Outpatient (CLI) | payer OTHER | LOC: CIMAGING 17:29 | PROVIDERS: ATTEND Internal Medicine Cardiovascular Disease | DX: I65.23 Occlusion and stenosis of bilateral carotid arteries (principal); I25.2 Old myocardial infarction | CPT/HCPCS: 93880-PO ==

== ENCOUNTER 2018-01-20 21:07 | Emergency (ER) | payer OTHER ==
[2018-01-20 21:18] VITALS: BP 205/111
--- NOTE | 2018-01-20 21:37 | EDPHY ---
H & P Time Seen by Provider: 01/20/18 21:16 HPI/ROS: CHIEF COMPLAINT: High blood pressure HISTORY OF PRESENT ILLNESS: Patient was admitted last year at the end of November with chest pain and was found to have an ST-elevation [place]. He says that his symptoms were chest pain radiating down both arms. He is currently on multiple medications including carvedilol but he has a bottle of carvedilol dated 08/14/2017 with 180 pills prescribed to be taken twice a day and there is more than 100 left in the bottle. The patient then tells me that this bottle also has medication in it from a 2nd prescription. [facility] his blood pressure about 8 or 10 days ago and reports that it was 154 systolic. Yesterday went for a walk and felt a little bit more tired than usual after 20-25 min. He did not have chest pain or shortness of breath. Today he went for a very similar walk in his neighborhood for 20-25 min and felt fine. He has not had any chest pain or shortness of breath, headache, or any neurologic symptoms. No arm pain. Tonight he took his blood pressure and it was high at home and he presents for evaluation. His son tells me that he is concerned that his father may be missing or forgetting to take some of his medications. Currently the patient tells me he is asymptomatic and feels well. REVIEW OF SYSTEMS: Eye: no change in vision ENT: no sore throat Cardiac: no chest pain or syncope or palpitations Pulmonary: no cough or SOB Abdomen: no vomiting, diarrhea, abdominal pain Musculoskeletal: No leg swelling Skin: no rash Neuro: no headache Constitutional: no fever : no urinary symptoms A comprehensive 10 point review of systems is otherwise negative aside from elements mentioned in the history of present illness. PAST MEDICAL HISTORY: Discharge summary dictated on 12/04/[address] Tadoe personally reviewed includes ST elevation myocardial infarction, diabetes, hypothyroid, hypertension, hyponatremia. Social history: Here with his son General Appearance: Alert and conversant, cooperative. Eyes: No scleral icterus. ENT, Mouth: Normal mucous membranes. Respiratory: Normal respiratory effort, breath sounds equal, lungs are clear to auscultation. Speaks in full sentences. Cardiovascular: Regular rate and rhythm. No murmurs. Gastrointestinal: Abdomen is soft and non tender. Neurological: Alert, face symmetric, normal motor and sensory in extremities. Normal mental status per son, normal [id number] bilaterally, not ataxic. Skin: Not diaphoretic. Musculoskeletal: No peripheral edema. Psychiatric: Not agitated. Emergency Department course/MDM: The patient presents with hypertension but does not have signs or symptoms of acute end-organ dysfunction or cardiac ischemia. His glucose was checked yesterday and was about 200. His last cardiology appointment was July of last year. I think the most reasonable thing at this point is to have the patient be diligent about his medications especially his carvedilol over the next couple of days and then follow up with Cardiology in the next 24-48 hours. He should return immediately if he develops any ischemic symptoms. Currently asymptomatic. Smoking Status: Never smoked Constitutional: Initial Vital Signs Temperature (C) 37.2 C 01/20/18 21:09 Heart Rate 89 01/20/18 21:09 Respiratory Rate 16 01/20/18 21:09 Blood Pressure 205/111 H 01/20/18 21:09 O2 Sat (%) 96 01/20/18 21:09 O2 Delivery Mode Room Air Allergies/Adverse Reactions: No Known Allergies Allergy (Verified 01/20/18 21:18) Home Medications: Medication Instructions Recorded Aspirin EC [Aspirin EC 325 mg (*)] 325 mg PO DAILY #30 tab 12/04/16 Atorvastatin Calcium [Lipitor 40 40 mg PO DAILY #30 tab 12/04/16 mg (*)] Carvedilol [Coreg (*)] 3.125 mg PO BIDMEAL #60 tab 12/04/16 Prasugrel HCl [Effient 10mg (*)] 10 mg PO DAILY #30 tab 12/04/16 metFORMIN HCL [Glucophage 500 mg 500 mg PO BIDMEAL #60 tab 12/04/16 (*)] Departure - Departure Disposition: Home, Routine, Self-Care Clinical Impression: HTN (hypertension) Qualifiers: Hypertension type: unspecified Qualified Code(s): I10 - Essential (primary) hypertension Condition: Good Instructions: Hypertension (ED) Additional Instructions: Follow-up with your sales development specialist this week. Make sure you take your medications as prescribed. Please return right away if you get chest pain or any shortness of breath. Referrals: Sofia Chen MD [Primary Care Provider] - As per Instructions Tree Duncan MD [Medical Doctor] - 1-2 days without fail
== END 2018-01-20 21:48 | disposition home or self-care (01) ==
LOC: CED 21:07
DX: I10 Essential (primary) hypertension (principal); E11.9 Type 2 diabetes mellitus without complications; I25.2 Old myocardial infarction; Z79.82 Long term (current) use of aspirin

== ENCOUNTER → 2018-01-23 | Outpatient (CLI) | payer OTHER ==
[~2018-01-23] MED LIST: IOPAMIDOL (ISOVUE 370) 100 ML BTL IV ONE
== END ==
LOC: FIMAGING 15:30
DX: I10 Essential (primary) hypertension (principal); I70.1 Atherosclerosis of renal artery
CPT/HCPCS: 74175; Q9967

== ENCOUNTER → 2018-05-01 | Outpatient (CLI) | payer OTHER | LOC: CIMAGING 10:09 | DX: Z13.6 Encounter for screening for cardiovascular disorders (principal); I65.23 Occlusion and stenosis of bilateral carotid arteries | CPT/HCPCS: 93880-PO ==